=== PATIENT | female | born 1975 | race Caucasian/White ===

== ENCOUNTER 2020-06-27 05:47 | Emergency (ER) | payer MEDICAID, SELFPAY ==
[2020-06-27 05:48] VITALS: BP 157/106; PULSE 91; RESP 16; TEMP 36.9; O2SAT 99; BMI 20.7
--- NOTE | 2020-06-27 05:59 | EX.ED.DYSGE1 ---
HPI History of Present Illness Chief Complaint: Other, Pain/Inj Informant: patient Onset/Context/Timing Onset: Yesterday Context: Gradual Onset Timing: Waxes and wanes Current Severity: Moderate Maximum Severity: Moderate Narrative Narrative: Patient presents with right upper lateral rib pain. Patient states yesterday she noted mild tenderness to this area. This morning it was more severe. Pain is reproducible with palpation over the chest wall. She denies any known injury. She does report having a mammogram a week ago that was normal. She has not had cough. She denies shortness of breath. [facility] Medical History COPD (chronic obstructive pulmonary disease) Home Medications budesonide-formoterol [Symbicort 160-4.5 Mcg Inhaler] 6 g IH BID 05/16/16 [History Last Taken 05/16/16 05:30] bupropion HCl 150 mg PO BID 05/16/16 [History Last Taken 05/16/16 05:30] naproxen 500 mg PO BID PRN #20 tab 05/16/16 [Rx Last Taken Unknown] tiotropium bromide [Spiriva] 18 mcg IH DAILY 05/16/16 [History Last Taken 05/16/16 05:30] lidocaine [Lidoderm] 1 patch TOPICAL Q24H #4 ea 06/27/20 [Rx Last Taken Unknown] naproxen [Naprosyn] 500 mg PO BID PRN #20 tab 06/27/20 [Rx Last Taken Unknown] Allergy/AdvReac Type Severity Reaction Status Date / Time No Known Allergies Allergy Verified 06/27/20 05:52 Social History Smoking Status: Current every day smoker ROS ROS ED Constitutional Constitutional ED: Denies chills or fever(s) Eyes Eyes: Denies change in vision ENT ENT ED: Denies sore throat Cardiovascular Cardiovascular: Reports chest pain Respiratory/Chest Respiratory/Chest: Denies cough or dyspnea Gastrointestinal Gastrointestinal: Denies abdominal pain, diarrhea, nausea or vomiting Genitourinary Genitourinary ED: Denies dysuria Musculoskeletal Musculoskeletal: Denies back pain Integumentary Denies rash Neurologic Neurologic: Denies headache(s) or weakness Psychiatric Psychiatric: Denies anxiety or depression Endocrine Endocrinology: Denies polydipsia or polyuria Allergic/Immunologic Allergic/Immunologic ED: Denies urticaria EXAM Physical Exam Const Vital Signs: 06/27/20 05:48 06/27/20 05:52 Temperature 98.5 F Temperature Source Oral Pulse Rate 91 Respiratory Rate 16 Respiratory Effort Normal Respiratory Pattern Normal Blood Pressure 157/106 H Blood Pressure Mean 123 Pulse Ox 99 Oxygen Delivery Method Room Air Positive well nourished and well developed General Appearance ED: well developed HEENT Reports normocephalic and head/scalp atraumatic Eyes PERRL and EOMs intact bilaterally Neck supple Chest Wall inspection of chest normal Chest: other Right upper lateral chest wall pain. No obvious masses. No crepitus. No overlying skin change. Resp normal respiratory effort and clear to auscultation bilaterally Cardio regular rate and regular rhythm GI normal to inspection, nondistended, normoactive bowel sounds Palpation: soft Back/Spine no CVA tenderness Extremity normal to inspection Neuro oriented x3 and no sensory deficits noted Sensorium / Orientation: alert Motor Exam: strength 5/5 throughout Psych mental status grossly normal Skin no rashes or lesions noted MDM MDM MDM Narrative Medical decision making narrative: Patient was given naproxen on arrival. Radiography Diagnostic Testing: Radiology Impression Ribs w/Chest X-Ray 06/27/20 06:05 IMPRESSION: RIBS: Normal x-ray examination of the ribs. CHEST: Normal x-ray examination of the chest. Electronically Signed: Jose Anne DO at 6:33 EDT Tel , Service support , Treatment and Re-Evaluation Comments:: Rib series with chest x-ray per my interpretation with no obvious abnormality. Radiology interpretation is reviewed. Test results discussed with the patient. She certainly appears to have reproducible chest wall pain. I do not believe this represents a PE or underlying pulmonary pathology. Patient be treated with anti-inflammatories and Lidoderm patches. Discharge Plan Triage Chief Complaint: Other, Pain/Inj ED Provider: Gabi Isabel Dx/Rx/DC Orders Clinical Impression: Strain of chest wall Instructions: ED Chest Wall Contusion Prescriptions: New naproxen [Naprosyn] 500 mg tablet 500 mg PO BID PRN (Reason: pain) Qty: 20 RF: 0 lidocaine [Lidoderm] 5 % adhesive patch,medicated 1 patch topical Q24H Qty: 4 RF: 0 No Action bupropion HCl 150 MG tablet sustained-release 12 hr 150 mg PO BID RF: 0 tiotropium bromide [Spiriva with HandiHaler] 18 MCG capsule, w/inhalation device 18 mcg IH DAILY RF: 0 budesonide-formoterol [Symbicort] 6 GM HFA aerosol inhaler 6 g IH BID RF: 0 naproxen 500 MG tablet 500 mg PO BID PRN Qty: 20 RF: 0 Primary Care Provider: Kaiser Pinto Referrals: Kaiser Pinto MD [Primary Care Provider] - 10-14 Days if not better Disposition Disposition: Home, self care
[2020-06-27] MEDS: Naproxen 500 MG Tablet PO (06:02)
--- NOTE | 2020-06-27 06:05 | RAD_ITS ---
STUDY: X-RAY - UNILATERAL RIBS ( RIGHT ) WITH CHEST REASON FOR EXAM: Female, 44 years old. right sided rib pain. NKI, pt states she does a lot of heavy lifting or may have bumped into something. TECHNIQUE - RIBS: 3 view(s) of the ribs. TECHNIQUE - CHEST: Single frontal view of the chest. COMPARISON: None. FINDINGS - RIBS: Normal visualized ribs without a demonstrated fracture. FINDINGS - CHEST: The lungs are clear and expanded. There is no demonstrated pleural abnormality. Normal size heart. Normal mediastinum and yadira. Normal visualized pulmonary arteries. Normal visualized aortic arch and descending thoracic aorta. Normal visualized thoracic spine. Normal visualized ribs, clavicles, and shoulders. There is no demonstrated abnormality of the visualized soft tissue structures of the upper abdomen. RAD/Ribs Uni Min 3V w/PA Chest IMPRESSION: RIBS: Normal x-ray examination of the ribs. CHEST: Normal x-ray examination of the chest. Electronically Signed: Jose Anne DO at 6:33 EDT Tel , Service support ,
== END 2020-06-27 07:12 | disposition home or self-care (01) ==
PROVIDERS: Emergency Provider Emergency Medicine; PCP Family Medicine
DX: S29.011A Strain of muscle and tendon of front wall of thorax, initial encounter (principal); J44.9 Chronic obstructive pulmonary disease, unspecified; F17.200 Nicotine dependence, unspecified, uncomplicated; Z79.1 Long term (current) use of non-steroidal anti-inflammatories (NSAID)
CPT/HCPCS: 71101; 99283

== ENCOUNTER 2021-02-18 18:05 | Emergency (ER) | payer MEDICAID, SELFPAY ==
[2021-02-18 18:06] VITALS: BP 113/68; PULSE 80; RESP 16; TEMP 36.4; O2SAT 94; BMI 18.7
--- NOTE | 2021-02-19 01:19 | EDS_ITS ---
HPI History of Present Illness Chief Complaint: Dental Narrative Narrative: Patient is a 45-year-old female who states that she had a filling to one of her upper teeth come out about a week ago. She states in the last 2 days she has been having increasing right-sided facial swelling and pain. She denies any fevers chills trouble breathing or swallowing but secondary to concern for infection presents for evaluation. [facility] Medical History COPD (chronic obstructive pulmonary disease) Home Medications budesonide-formoterol [Symbicort 160-4.5 Mcg Inhaler] 6 g IH BID 05/16/16 [History Last Taken 05/16/16 05:30] tiotropium bromide [Spiriva] 18 mcg IH DAILY 05/16/16 [History Last Taken 05/16/16 05:30] albuterol sulfate 1 puff INHALATION Q6H PRN 02/19/21 [History Last Taken Unknown] amoxicillin-pot clavulanate [Augmentin] 1 tab PO BID 10 Days #20 tab 02/19/21 [Rx Last Taken Unknown] mometasone-formoterol [Dulera] INHALATION 02/19/21 [History Last Taken Unknown] Allergy/AdvReac Type Severity Reaction Status Date / Time No Known Allergies Allergy Verified 02/18/21 18:09 Social History Smoking Status: Current every day smoker tobacco type: cigarettes ROS ROS ED Constitutional Constitutional ED: Denies chills or fever(s) ENT ENT ED: Reports other Details: Positive facial swelling and dental pain ; Denies sore throat Cardiovascular Cardiovascular: Denies chest pain Respiratory/Chest Respiratory/Chest: Denies cough or dyspnea Gastrointestinal Gastrointestinal: Denies abdominal pain, diarrhea, nausea or vomiting Genitourinary Genitourinary ED: Denies dysuria Musculoskeletal Musculoskeletal: Denies myalgias Integumentary Denies rash Neurologic Neurologic: Denies headache(s) Hematologic/Lymphatic Hematologic/Lymphatic: Denies easy bleeding or easy bruising EXAM Physical Exam Const Vital Signs: 02/18/21 18:06 Temperature 97.5 F L Temperature Source Oral Pulse Rate 80 Respiratory Rate 16 Blood Pressure 113/68 Blood Pressure Mean 83 Pulse Ox 94 Oxygen Delivery Method Room Air Positive well nourished and well developed General Appearance ED: well developed HEENT Reports moist mucous membranes HEENT Narrative: Patient has diffuse soft tissue swelling to the right cheek without obvious cellulitis or parotiditis noted. There are dental caries present within the mouth without oral lesions airway edema or compromise. There is small amount of purulent material noted along the right upper gingiva consistent with developing dental abscess. Eyes PERRL and EOMs intact bilaterally Neck supple Neck Narrative: No brawny edema in the submental space to suggest Ridge's angina Resp normal respiratory effort and clear to auscultation bilaterally Cardio regular rate and regular rhythm Extremity normal to inspection Neuro oriented x3 and CN's II-XII intact bilaterally Sensorium / Orientation: alert Motor Exam: strength 5/5 throughout Psych mental status grossly normal Skin no rashes or lesions noted Skin Narrative: Soft tissue swelling of the right face as documented above MDM MDM MDM Narrative Medical decision making narrative: Patient presented to the ER afebrile without respiratory distress or airway compromise and no soft tissue changes to suggest Ridge's angina. Therefore I felt no need for imaging or laboratory studies. As there was a small amount appear material expressed on exam I did recommend we perform an incision and drainage based on the fact she has a dental abscess. Patient states she does not want any type of incision performed at this time and therefore I will simply place her on antibiotics and patient can be discharged and follow-up with her dentist for repeat evaluation Discharge Plan Triage Chief Complaint: Dental ED Provider: Clifton Whittington Dx/Rx/DC Orders Clinical Impression: Abscess, dental Instructions: Dental Abscess Prescriptions: New amoxicillin-pot clavulanate [Augmentin] 875-125 mg tablet 1 tab PO BID 10 Days Qty: 20 RF: 0 No Action Spiriva with HandiHaler 18 MCG capsule, w/inhalation device 18 mcg IH DAILY RF: 0 budesonide-formoterol [Symbicort] 6 GM HFA aerosol inhaler 6 g IH BID RF: 0 albuterol sulfate 90 mcg/actuation Hfa Aerosol Inhaler 1 puff INHALATION Q6H PRN (Reason: sob) RF: 0 Dulera 200-5 mcg/actuation Hfa Aerosol Inhaler INHALATION RF: 0 Primary Care Provider: Kaiser Pinto Referrals: Kaiser Pinto MD [Primary Care Provider] - Disposition Disposition: Home, Self Care Discharge Date/Time: 02/19/21 01:34
[2021-02-19] MEDS: Amox/Clavulanate 875 MG Tablet PO (01:28)
== END 2021-02-19 01:34 | disposition home or self-care (01) ==
PROVIDERS: Emergency Provider Emergency Medicine; PCP Family Medicine; Visit Provider Emergency Medicine
DX: K04.7 Periapical abscess without sinus (principal); J44.9 Chronic obstructive pulmonary disease, unspecified; R51.9 Headache, unspecified; F17.210 Nicotine dependence, cigarettes, uncomplicated
CPT/HCPCS: 99282

== ENCOUNTER 2022-03-25 03:51 | Emergency (ER) | payer OTHER, MEDICAID, SELFPAY ==
[2022-03-25 03:52] VITALS: BP 151/83; PULSE 103; RESP 16; TEMP 37.2; O2SAT 95; BMI 19.8
--- NOTE | 2022-03-25 03:56 | EDS_ITS ---
HPI History of Present Illness Chief Complaint: Dental Informant: patient Onset/Context/Timing Onset: Yesterday Context: Gradual Onset Timing: Continuous Quality: aching Location: R maxillary tooth Current Severity: Moderate Maximum Severity: Moderate Worsened by: eating Associated Symptoms Assocated Symptom - Dental: face swelling Narrative Narrative: Gradual onset right maxillary tooth ache yesterday, woke up early this morning with more pain and a very swollen face. No fevers or chills. No bleeding or purulent discharge in her mouth. PFSH PFSH Medical History COPD (chronic obstructive pulmonary disease) Home Medications budesonide-formoterol HFA 160 mcg-4.5 mcg/actuation aerosol inhaler (Symbicort) 6 g IH BID COPD 05/16/16 [History Last Taken 05/16/16 05:30] tiotropium bromide 18 mcg capsule with inhalation device (Spiriva with HandiHaler) 18 mcg IH DAILY COPD 05/16/16 [History Last Taken 05/16/16 05:30] albuterol sulfate 90 mcg/actuation aerosol inhaler 1 puff inhalation Q6H PRN sob 02/19/21 [History Last Taken Unknown] amoxicillin 875 mg-potassium clavulanate 125 mg tablet (Augmentin) 1 tab PO BID 10 days #20 tabs 02/19/21 [Rx Last Taken Unknown] mometasone-formoterol HFA 200 mcg-5 mcg/actuation aerosol inhaler (Dulera) inhalation 02/19/21 [History Last Taken Unknown] amoxicillin 500 mg tablet 500 mg PO TID #30 tabs 03/25/22 [Rx Last Taken Unknown] Allergy/AdvReac Type Severity Reaction Status Date / Time No Known Allergies Allergy Verified 02/18/21 18:09 Social History Smoking Status: Current every day smoker tobacco type: cigarettes ROS ROS ED Constitutional Constitutional ED: Denies chills or fever(s) Eyes Eyes: Denies change in vision or double vision ENT ENT ED: Reports as per HPI and dental pain; Denies sinus pain or throat swelling Cardiovascular Cardiovascular: Denies chest pain or palpitations Respiratory/Chest Respiratory/Chest: Denies cough or dyspnea Integumentary Denies abscess or rash Neurologic Neurologic: Denies headache(s), paresthesias or weakness EXAM Physical Exam Const Vital Signs: 03/25/22 03:52 Temperature 99 F Temperature Source Temporal Pulse Rate 103 H Respiratory Rate 16 Blood Pressure 151/83 H Blood Pressure Mean 105 Pulse Ox 95 Oxygen Delivery Method Room Air Positive well nourished and well developed General Appearance ED: well developed and NAD HEENT HEENT Narrative: Tender tooth #4, it appears normal otherwise and has a filling intact. The ging [place] around it has some plaque but no bleeding or signs of a gingival abscess or gingivitis. There appears to be a supraperiapical abscess that is pointing intraorally, tender just external to the affected tooth, and there is significant diffuse right maxillary facial swelling that makes it difficult to appreciate if there is a definite fluctuant collection/abscess or not. Face and Sinus: sinuses nontender Throat: posterior oropharynx normal Eyes PERRL and EOMs intact bilaterally Neck no lymphadenopathy and supple Resp normal respiratory effort Neuro oriented x3 and CN's II-XII intact bilaterally Sensorium / Orientation: alert Gait (Neuro): normal gait Psych mental status grossly normal and thought process normal Skin no rashes or lesions noted and no wounds MDM MDM MDM Narrative Medical decision making narrative: My recommendation to the patient was to have us perform a needle aspiration of this, as there is a possible collection/abscess here that if we drain, will help this get better quicker. She was amenable to that understanding that there is no guarantee that it would be successful. See the procedure note, only yielded very small purulent material, will place her on amoxicillin and have her follow- up with a dentist. She is not in a lot of pain, it is more the swelling that she was concerned about but I did give her a dose of anti-inflammatory here. Procedures Other Procedures Procedure(s): Dental abscess aspiration: After informed consent verbally from the patient, locally anesthetized intraorally with Cetacaine spray, followed by attempted aspiration suprapically with a 21-gauge needle, only a drop of purulent material was able to be aspirated after redirecting once or twice, patient tolerated well no complications. Able to rinse with ice water without difficulty. Discharge Plan Triage Chief Complaint: Dental ED Provider: Petey Valencia Dx/Rx/DC Orders Clinical Impression: Dental abscess, Odontalgia Instructions: Dental Abscess Prescriptions: New amoxicillin 500 mg tablet 500 mg PO TID Qty: 30 0RF No Action Spiriva with HandiHaler 18 MCG capsule, w/inhalation device 18 mcg IH DAILY budesonide-formoterol [Symbicort] 6 GM HFA aerosol inhaler 6 g IH BID albuterol sulfate 90 mcg/actuation Hfa Aerosol Inhaler 1 puff INHALATION Q6H PRN (Reason: sob) Dulera 200-5 mcg/actuation Hfa Aerosol Inhaler INHALATION amoxicillin-pot clavulanate [Augmentin] 875-125 mg tablet 1 tab PO BID 10 Days Qty: 20 0RF Primary Care Provider: Kaiser Pinto Referrals: Kaiser Pinto MD [Primary Care Provider] - Dentist,Your [STAFF PHYSICIAN] - 3-5 Days Disposition Disposition: Home, Self Care
[2022-03-25] MEDS: Amoxicillin 250 MG Capsule PO (04:20)
[2022-03-25] MEDS: Naproxen 500 MG Tablet PO (04:20)
[2022-03-25] MEDS: AMOXICILLIN 500 MG CAPSULE PO (04:20)
[2022-03-25] MEDS: Tetracaine/Benzocaine/Butamben 1 APPLIC TOPICAL (04:21)
== END 2022-03-25 04:22 | disposition home or self-care (01) ==
PROVIDERS: Emergency Provider Emergency Medicine; PCP Family Medicine; Visit Provider Emergency Medicine
DX: K04.7 Periapical abscess without sinus (principal); J44.9 Chronic obstructive pulmonary disease, unspecified; F17.210 Nicotine dependence, cigarettes, uncomplicated; K08.89 Other specified disorders of teeth and supporting structures
CPT/HCPCS: 41800; 64999; 99283

== ENCOUNTER 2025-01-16 08:06 | Inpatient (IN) | payer OTHER, SELFPAY ==
[2025-01-16] VITALS (16 sets, daily range): BP systolic 121–139; BP diastolic 75–92; PULSE 92–117; RESP 16–23; TEMP 35.9–37.1; O2SAT 87–99; BMI 17.6; BMI 16.2
--- NOTE | 2025-01-16 08:51 | EKG12_ITS ---
Test Reason : SOB Blood Pressure : */* mmHG Vent. Rate : 93 BPM Atrial Rate : 93 BPM P-R Int : 106 ms QRS Dur : 80 ms QT Int : 352 ms P-R-T Axes : 77 86 72 degrees QTcB Int : 437 ms Sinus rhythm with short [place] Otherwise normal ECG Confirmed by Juanito Gomes ([id number]), desk editor BRY ARAUJO ([id number]) on 01/18/2025 8:39:15 AM Referred By: MEE Confirmed By: Juanito Gomes
--- NOTE | 2025-01-16 08:57 | ED.VIS.DYS ---
HPI History of Present Illness Chief Complaint: Shortness of Breath Narrative Narrative: Chief complaint and HPI: 57-year-old female with past medical history of COPD presents for evaluation of shortness of breath. Patient states all last week she was fatigued but denies any fever, chills, URI symptoms. States she has been having some shortness of breath and intermittent left-sided chest pain which she describes as sharp. Onset of symptoms several days. Worse when she takes a deep breath. Has been using her COPD medications. Denies DuoNebs at home. States she wears 2 1/2 L at night but has been wearing O2 continuously due to her shortness of breath. Review of systems: See HPI Medications: As listed on the chart Allergies: As listed on the chart PFSH: Per chart Vital signs: As listed on the chart. Reviewed. Physical exam: Gen: A&O x3, NAD Head: Normocephalic, atraumatic Eyes: No sclera icterus, conjunctiva clear ENT: Moist mucous membranes Neck: Trachea midline, No JVD CV: Tachycardic, regular rhythm, no murmurs, no peripheral edema Resp: Lungs CTA BL with expiratory wheezing GI: Abd soft, non-distended, non-tender, no r/r/g Musc: Full ROM, no deformity Skin: Warm, dry Neuro: Alert, oriented, grossly intact, sensation intact Psych: Cooperative, appropriate mood and affect [facility] Medical History COPD (chronic obstructive pulmonary disease) Home Medications ?Medication ?Instructions ?Recorded ?Last Taken ?Type albuterol sulfate 90 mcg/actuation 1 puff inhalation Q6H PRN sob 02/19/21 01/16/25 History aerosol inhaler fluticasone fur. 100 mcg-umeclid 1 ea inhalation DAILY 01/16/25 01/16/25 History 62.5 mcg-vilant 25 mcg inhalat.powder (Trelegy Ellipta) Allergy/AdvReac Type Severity Reaction Status Date / Time No Known Allergies Allergy Verified 01/16/25 08:11 Social History Smoking Status: Former smoker EXAM Physical Exam Const Vital Signs: 01/16/25 08:09 01/16/25 08:12 01/16/25 08:12 Temperature 98.7 F 98.6 F Temperature Source Oral Oral Pulse Rate 99 95 Respiratory Rate 18 18 Respiratory Effort Short of Breath Respiratory Depth Normal Respiratory Pattern Normal Blood Pressure 130/90 H 139/90 H Blood Pressure Mean 103 106 Pulse Ox 98 98 Oxygen Delivery Method Nasal Cannula Nasal Cannula Nasal Cannula Oxygen Flow Rate (L/min) 2 2 01/16/25 08:55 01/16/25 08:55 01/16/25 08:57 Temperature Temperature Source Pulse Rate 110 H Respiratory Rate 18 Respiratory Effort Respiratory Depth Respiratory Pattern Blood Pressure Blood Pressure Mean Pulse Ox 98 87 Oxygen Delivery Method Nasal Cannula Room Air Oxygen Flow Rate (L/min) 2 01/16/25 09:23 01/16/25 10:15 01/16/25 10:29 Temperature 98.1 F 98.6 F Temperature Source Oral Oral Pulse Rate 92 99 95 Respiratory Rate 23 H 18 17 Respiratory Effort Respiratory Depth Respiratory Pattern Blood Pressure 127/76 H 128/89 H Blood Pressure Mean 93 102 Pulse Ox 96 99 Oxygen Delivery Method Nasal Cannula Nasal Cannula Oxygen Flow Rate (L/min) 2 01/16/25 11:01 Temperature 98.1 F Temperature Source Oral Pulse Rate 111 H Respiratory Rate 20 H Respiratory Effort Respiratory Depth Respiratory Pattern Blood Pressure 126/84 H Blood Pressure Mean 98 Pulse Ox 95 Oxygen Delivery Method Nasal Cannula Oxygen Flow Rate (L/min) 2 MDM MDM MDM Narrative Medical decision making narrative: 57-year-old female with past medical history of COPD presents for evaluation of shortness of breath. Patient states all last week she was fatigued but denies any fever, chills, URI symptoms. States she has been having some shortness of breath and intermittent left-sided chest pain which she describes as sharp. Onset of symptoms several days. Worse when she takes a deep breath. Has been using her COPD medications. On presentation, patient was on 2 L nasal cannula. She was taken off of oxygen and dropped to 87% therefore patient was placed back on 2 L nasal cannula. Differential diagnosis includes but is not limited to COPD exacerbation, viral illness, pneumonia, arrhythmia, anemia, ACS, PE. DuoNebs, prednisone, aspirin ordered. CBC with mild leukocytosis 11.5. No anemia. Platelets unremarkable. D-dimer elevated at 1.37. Cannot rule out PE. CTA chest ordered. COVID, flu, RSV negative. BMP unremarkable. BNP unremarkable. CTA chest negative for PE or aortic abnormality. Moderate to severe emphysema. Nodular density with airspace disease/atelectasis in the left lower lobe. Nodule component approximately 9 mm. While this may represent area of pneumonitis, an underlying neoplastic process not excluded. Recommend follow-up imaging after treatment in 3 months to establish resolution. Right thyroid lobectomy. Troponin unremarkable x 2. On reevaluation, patient is still intermittently wheezy. She is tachycardic and intermittently tachypneic on 2 L nasal cannula. Patient will warrant admission for COPD exacerbation. Patient was updated of all results and confirmed understand the plan. I spoke with the hospitalist who accepted admission. I held off on antibiotics at this time for possible pneumonitis. EKG: Interpreted by me/EM physician: EKG shows sinus rhythm with short [place]. No acute ischemic changes. Heart rate 93 Diagnostic: Interpreted by me/EM physician: Chest x-ray without pneumonia, effusion, pneumothorax, cardiomegaly. Patient has COPD lungs. Radiology in agreement. Impression: 1. Acute hypoxia requiring oxygen 2. COPD exacerbation 3. Possible pneumonitis versus underlying neoplastic process Lab Data Labs: Laboratory Results - last 24 hr 01/16/25 01/16/25 08:22 10:19 WBC 11.5 H RBC 3.78 L Hgb 13.2 Hct 41.4 MCV 109.5 H MCH 34.9 H MCHC 31.9 L RDW Std Deviation 55.4 H RDW Coeff of [place]oul[place] 13.4 Plt Count 310 MPV 10.7 Immature Gran % (Auto) 0.600 Neut % (Auto) 83.4 H Lymph % (Auto) 11.0 L [place] % (Auto) 4.1 Eos % (Auto) 0.3 Baso % (Auto) 0.6 Absolute Neuts (auto) 9.6 H Absolute Lymphs (auto) 1.27 Nucleated RBC % 0 D-Dimer Quant (PE/DVT) 1.37 H* Sodium 139 Potassium 3.8 Chloride 98 Carbon Dioxide 31.8 Anion Gap 9 BUN 10 Creatinine 0.45 L Estim Creat Clear Calc 100.11 Est GFR (MDRD) Non-Af 117 BUN/Creatinine Ratio 22.3 H Glucose 97 Calcium 9.2 Troponin T High Sens 11 Troponin T Hi Sens 2 Hr 14 NT pro BNP II 63 Radiography Diagnostic Testing: Clinical Impression(s) from Imaging Studies Chest X-Ray 01/16/25 09:15 IMPRESSION: As above. Reading Location: [facility] Chest CTA 01/16/25 09:37 IMPRESSION: 1. No acute aortic abnormality. 2. No evidence of acute or chronic pulmonary embolus. 3. [id number] emphysema. This is greater than would be expected for age. Correlate with risk factors. 4. Nodular density with airspace disease/atelectasis in the left lower lobe. Nodular component proximally 9 mm. While this may represent an area of pneumonitis, an underlying neoplastic process not excluded. Recommend follow-up imaging after treatment in 3 months to establish resolution. If the abnormality persists, neoplasia should be excluded. 5. Right thyroid lobe lobectomy. Reading Location: [facility] Discharge Plan Triage Chief Complaint: Shortness of Breath ED Provider: Martin Joy Dx/Rx/DC Orders Prescriptions: No Action albuterol sulfate 90 mcg/actuation Hfa Aerosol Inhaler 1 puff INHALATION Q6H PRN (Reason: sob) Trelegy Ellipta 100-62.5-25 mcg blister with device 1 ea inhalation DAILY Primary Care Provider: Kaiser Pinto Referrals: Kaiser Pinto MD [Primary Care Provider, Family Practice] Print Language: Slovenian
--- NOTE | 2025-01-16 09:15 | RAD_ITS ---
PROCEDURE: CHEST PA AND LATERAL 01/16/2025 REASON FOR EXAM: SHORTNESS OF BREATH TECHNIQUE: Procedure Code: RADCXR Modality: DX Procedure: CHEST PA AND LATERAL COMPARISON: 06/27/2020. FINDINGS: The lungs are clear. The cardiomediastinal silhouette appears unremarkable. No acute osseous abnormality. RAD/Chest PA and Lateral IMPRESSION: As above. Reading Location: [id number]
[2025-01-16 09:16] LABS: Hematocrit 41.4 % (37-47); Hemoglobin 13.2 g/dL (12.0-15.0); Immature Granulocytes Count 0.070 X10^3/uL (0.0-0.0); Mean Corp Hgb Conc 31.9 g/dL (32-36); Mean Corpuscular Volume 109.5 fL (81-99); Mean Platelet Vol. 10.7 fl (6.2-12.0); NRBC Flagged by Analyzer 0 % (0-5); Platelet Count 310 K/mm3 (150-450); RBC Distribution Width CV 13.4 % (11.6-14.6); RBC Distribution Width SD 55.4 fl (35.1-43.9); Red Blood Count 3.78 M/mm3 (4.2-5.4); White Blood Count 11.5 K/mm3 (4.4-11.0)
--- NOTE | 2025-01-16 09:25 | ED.RN ---
Called lab about BNP and TROP not being received. They will be checking on it.
[2025-01-16 09:28] LABS: D-Dimer Quantitative (DVT/PE) 1.37 FEU/ug/m (0.27-0.49)
--- NOTE | 2025-01-16 09:37 | CT_ITS ---
PROCEDURE: CTA CHEST W/WO CONTRAST 01/16/2025 REASON FOR EXAM: PE TECHNIQUE: Procedure Code: [id number] Modality: CT Procedure: CTA CHEST W/WO CONTRAST Multiplanar Sagittal and Coronal images were obtained. 3D post processing was performed CONTRAST: 7 VOLUME: 75 mL One or more dose reduction techniques were used (e.g., Automated exposure control, adjustment of the mA and/or kV according to patient size, use of iterative reconstruction technique). RADIATION DOSE SUMMARY: CTDlvol: 7 mGy DLP: 113 mGycm COMPARISON: January 16, 2025 # of known CTs in the past 12 months: 0 # of known Cardiac Nuclear Medicine Studies in the past 12 months: 0 FINDINGS: Thoracic Aorta: Timing and quality of the contrast bolus is diagnostic. No evidence of aortic rupture aneurysm. Mild atherosclerotic plaque. Heart: Normal-size. No pericardial effusion. Coronary arteries are unremarkable. Pulmonary Vessels: The timing and quality of the contrast bolus is diagnostic. There is no evidence of acute or chronic pulmonary embolus. Hardware: None Lymph nodes: None appear enlarged Lungs and Airways: Tnadwexo-df-kauatc upper lobe predominant centrilobular emphysema is present. Spiculated nodular density left lower lobe with adjacent airspace disease or subsegmental atelectasis. The nodule is at least 9 mm. Subtle ground-glass opacity in the periphery of the left upper lobe. Mild scarring or atelectasis posterior right upper lobe. Pleura: No pleural effusion or pneumothorax. Upper Abdomen: Unremarkable Bones: Mild degenerative changes Right thyroid lobe is surgically absent. CT/CTA Chest W/WO Contrast IMPRESSION: 1. No acute aortic abnormality. 2. No evidence of acute or chronic pulmonary embolus. 3. Nthlkduf-mr-jtmnxo emphysema. This is greater than would be expected for a ge. Correlate with risk factors. 4. Nodular density with airspace disease/atelectasis in the left lower lobe. Nodular component proximally 9 mm. While this may represent an area of pneumonitis, an underlying neoplastic process not excluded . Recommend follow-up imaging after treatment in 3 months to establish resolution. If the abnormality persists, neoplasia shoul d be excluded. 5. Right thyroid lobe lobectomy. Reading Location: [id number]
[2025-01-16 09:41] LABS: Pro- Brain NATRIURETIC PEPTIDE 63 pg/mL (<=900); Troponin T High Sensitivity 11 ng/L (<=14)
[2025-01-16 09:43] LABS: Anion Gap 9 (5-15); BUN 10 mg/dL (4-19); BUN/Creat Ratio 22.3 RATIO (10-20); Calcium,Total 9.2 mg/dL (7.6-11.0); Carbon Dioxide 31.8 mmol/L (21.0-32.0); Chloride 98 mmol/L (98-108); Estimated Creatinine Clearance 100.11 ml/min (50-250); Glucose 97 mg/dL (70-99); Potassium 3.8 mmol/L (3.3-5.1)
[2025-01-16] MEDS: 0.9% Normal Saline (1000mL) 1,000 ML 999 ML IV (10:29)
[2025-01-16 10:59] LABS: Troponin T High Sens 2 HR 14 ng/L (<=14)
--- NOTE | 2025-01-16 11:27 | PCM.HP.STD ---
HPI - General General Date of Admission: 01/16/25 Date of Service: 01/16/25 Chief Complaint: shortness of breath HPI Narrative FABIOLA CARR, is a 49 F with a PMH as outlined who was admitted via the ED On 01/16/2025 with a complaint of shortness of breath. She has a history of COPD and said she had been fatigued all of last week prior to admission. She had associated fever, chills and URI symptoms. She also admitted to left sided shortness of breath which was pleuritic in nature. SHe said she usually wore 2.5L of oxygen at night but had now been wearing it all day. Review of systems is otherwise negative. She had been using her inhalers more often than usual. Vitals in [facility] ED were BP of 126/84, IL of 111, RR of 20 and temp was 98.1F. She was saturating at 95% on 2L of oxygen. CBC showed wbc of 11.5, Hb of 13.2 and platelets of 310. D-dimer was 1.37. Chemistry showed sodium of 139 with potassium of 3.8 and bicarb of 31.8. Creatinine was 0.45. CTA chest showed no acute aortic abnormality and no evidence of acute or chronic PE and showed moderate to severe emphysema which is greater than expected for age and a nodular density with airspace disease versus atelectasis in the left lower lobe. She also had an proximal nodular component which measured about 9 mm in her office who presented here with pneumonitis and underlying neoplastic process could not be excluded. EKG showed no acute ST changes. She has been admitted to be managed for acute hypoxia due to acute exacerbation of COPD. [facility] Medical History COPD (chronic obstructive pulmonary disease) Home Medications ?Medication ?Instructions ?Recorded ?Last Taken ?Type albuterol sulfate 90 mcg/actuation 1 puff inhalation Q6H PRN sob 02/19/21 01/16/25 History aerosol inhaler fluticasone fur. 100 mcg-umeclid 1 ea inhalation DAILY 01/16/25 01/16/25 History 62.5 mcg-vilant 25 mcg inhalat.powder (Trelegy Ellipta) Allergy/AdvReac Type Severity Reaction Status Date / Time No Known Allergies Allergy Verified 01/16/25 08:11 Social History Smoking Status: Current every day smoker tobacco type: cigarettes ROS Constitutional Constitutional: Reports fatigue, malaise and weakness; Denies anorexia, chills or fever(s) Eyes Eyes: Denies change in vision ENT HEENT: Denies dysphagia, headache(s), nasal congestion, nasal discharge or sore throat Cardiovascular Cardiovascular: Reports dyspnea on exertion and rapid heart rate; Denies chest pain, claudication, edema, lightheadedness, orthopnea, palpitations, paroxysmal nocturnal dyspnea or syncope Respiratory/Chest Respiratory/Chest: Reports cough, dyspnea, shortness of breath at rest, shortness of breath with exertion and wheezing; Denies excessive phlegm production, hemoptysis or productive cough Gastrointestinal Gastrointestinal: Denies abdominal pain, constipation, diarrhea, nausea or vomiting Genitourinary Genitourinary: Denies dysuria Musculoskeletal Musculoskeletal: Denies back pain Neurologic Neurologic: Denies confusion, dizziness, focal weakness, headache(s), numbness or seizures Psychiatric Psychiatric: Denies anxiety or depression Vital Signs Vital Signs Vital Signs: 01/16/25 08:09 01/16/25 08:12 01/16/25 08:12 Temperature 98.7 F 98.6 F Temperature Source Oral Oral Pulse Rate 99 95 Respiratory Rate 18 18 Respiratory Effort Short of Breath Respiratory Depth Normal Respiratory Pattern Normal Blood Pressure 130/90 H 139/90 H Blood Pressure Mean 103 106 Pulse Ox 98 98 Oxygen Delivery Method Nasal Cannula Nasal Cannula Nasal Cannula Oxygen Flow Rate (L/min) 2 2 01/16/25 08:55 01/16/25 08:55 01/16/25 08:57 Temperature Temperature Source Pulse Rate 110 H Respiratory Rate 18 Respiratory Effort Respiratory Depth Respiratory Pattern Blood Pressure Blood Pressure Mean Pulse Ox 98 87 Oxygen Delivery Method Nasal Cannula Room Air Oxygen Flow Rate (L/min) 2 01/16/25 09:23 01/16/25 10:15 01/16/25 10:29 Temperature 98.1 F 98.6 F Temperature Source Oral Oral Pulse Rate 92 99 95 Respiratory Rate 23 H 18 17 Respiratory Effort Respiratory Depth Respiratory Pattern Blood Pressure 127/76 H 128/89 H Blood Pressure Mean 93 102 Pulse Ox 96 99 Oxygen Delivery Method Nasal Cannula Nasal Cannula Oxygen Flow Rate (L/min) 2 01/16/25 11:01 Temperature 98.1 F Temperature Source Oral Pulse Rate 111 H Respiratory Rate 20 H Respiratory Effort Respiratory Depth Respiratory Pattern Blood Pressure 126/84 H Blood Pressure Mean 98 Pulse Ox 95 Oxygen Delivery Method Nasal Cannula Oxygen Flow Rate (L/min) 2 Weight Weight: 93 lb 7.616 oz Body Mass Index (BMI) 17.6 Physical Exam Const alert and oriented x3 Constitutional Narrative: frail looking, weak. General Appearance: cooperative HEENT normocephalic, head/scalp atraumatic, hearing grossly normal bilaterally and moist oral mucous membranes Mouth: oral and palatal mucosa normal Eyes EOMs intact bilaterally and conjunctivae normal Neck supple Resp Resp Narrative: moderately diminished breath sounds bibasally, no wheezes or crackles. On 2L of oxygen by nasal canula. Tachypneic Cardio S1 normal heart sound, S2 normal heart sound and no murmurs Cardio Narrative: tachypneic GI normal to inspection, nondistended, normoactive bowel sounds, soft to palpation and non-tender Neuro oriented x3, moves all extremities and no focal motor deficits Sensorium / Orientation: awake and alert Motor Exam: strength 5/5 throughout Psych affect normal Results Lab / Micro Data 01/16/25 08:22 01/16/25 08:22 Labs: Laboratory Results - last 24 hr 01/16/25 08:22: WBC 11.5 H, RBC 3.78 L, Hgb 13.2, Hct 41.4, MCV 109.5 H, MCH 34.9 H, MCHC 31.9 L, RDW Std Deviation 55.4 H, RDW Coeff of Roula 13.4, Plt Count 310, MPV 10.7, Immature Gran % (Auto) 0.600, Neut % (Auto) 83.4 H, Lymph % (Auto) 11.0 L, Harper % (Auto) 4.1, Eos % (Auto) 0.3, Baso % (Auto) 0.6, Absolute Neuts (auto) 9.6 H, Absolute Lymphs (auto) 1.27, Nucleated RBC % 0, D-Dimer Quant (PE/DVT) 1.37 H*, Sodium 139, Potassium 3.8, Chloride 98, Carbon Dioxide 31.8, Anion Gap 9, BUN 10, Creatinine 0.45 L, Estim Creat Clear Calc 100.11, Est GFR (MDRD) Non-Af 117, BUN/Creatinine Ratio 22.3 H, Glucose 97, Calcium 9.2, Troponin T High Sens 11, NT pro BNP II 63 01/16/25 10:19: Troponin T Hi Sens 2 Hr 14 Micro: Microbiology 01/16/25 09:03 Mucosa - Nose SARS-CoV-2, Influenza & RSV (PCR) - Final Imaging Radiology Impression Chest X-Ray 01/16/25 09:15 IMPRESSION: As above. Reading Location: [id number] Chest CTA 01/16/25 09:37 IMPRESSION: 1. No acute aortic abnormality. 2. No evidence of acute or chronic pulmonary embolus. 3. Tcqyelpz-gh-wdqhur emphysema. This is greater than would be expected for age. Correlate with risk factors. 4. Nodular density with airspace disease/atelectasis in the left lower lobe. Nodular component proximally 9 mm. While this may represent an area of pneumonitis, an underlying neoplastic process not excluded. Recommend follow-up imaging after treatment in 3 months to establish resolution. If the abnormality persists, neoplasia should be excluded. 5. Right thyroid lobe lobectomy. Reading Location: [id number] Assessment & Plan Assessment/Plan (1) COPD exacerbation: PLAN: Plan #Hypoxia due to acute COPD exacerbation Admitted with a complaint of shortness of breath and wheezing. She usually uses 2.5 L at home at night but has not been using [id number]-[id number]. CT chest showed no evidence of PE and showed no acute aortic abnormality and showed moderate to severe emphysema which was greater than 1 perspective for her age. It also showed a nodular density with airspace disease versus atelectasis in the left lower lobe and a nodular component proximally measuring 9 mm which may represent pneumonitis versus underlying neoplastic process. Admit to PCU. Patient is tachycardic and tachypneic. Currently on 2 L of oxygen. Titrate oxygen to maintain saturation above 90%. Breathing treatments bronchodilators. Started on IV Solu-Medrol 40 mg Q8 and IV Levaquin. #SIRS criteria: Patient is tachycardic and tachypneic, however this is likely due to the COPD exacerbation and not necessarily due to sepsis. Will hold off on initiating sepsis protocol for now. #Lung nodule: Patient has a 9 mm lung nodule but is unclear whether this is pneumonitis versus underlying neoplastic process. Will benefit from follow-up imaging once COPD exacerbation is resolved. #Nicotine dependence: States she quit 2 weeks ago. Counseled to continue to abstain. Nicotine patch as needed. DVT prophylaxis: Lovenox CODE STATUS:full code Patient and her daughters who were by her bedside counseled extensively about different types of CODE STATUS including full code, DNR CCA and DNR CCA. Patient elects to be full code. Total hqhn-cr-awqu time 16 minutes. Charges/Coding Visit Charges Inpatient E&M: 98710 Init Hosp L3 Procedures Hospitalists Procedures: 76557 Advncd Care Plan 30 Min
[2025-01-16] MEDS: levoFLOXacin IV 750 MG/150 ML BAG 100 MG IV (13:44)
[2025-01-16] MEDS: 0.9% Normal Saline (1000mL) 1,000 ML 125 ML IV ×2 (13:55→23:45)
[2025-01-16 14:06] LABS: Troponin T High Sens 4 HR 9 ng/L (<=14)
[2025-01-16] MEDS: Budesonide Respules 0.5 MG/2 ML AMPUL.NEB. INHALATION (19:54)
[2025-01-16] MEDS: 0.9% Saline Lock 10 ML Syringe IV (20:10)
[2025-01-17] VITALS (7 sets, daily range): BP systolic 115–140; BP diastolic 77–97; PULSE 87–101; RESP 16–20; TEMP 36.1–36.8; O2SAT 94–98
[2025-01-17 04:46] LABS: Hematocrit 37.6 % (37-47); Hemoglobin 12.0 g/dL (12.0-15.0); Immature Granulocytes Count 0.050 X10^3/uL (0.0-0.0); Mean Corp Hgb Conc 31.9 g/dL (32-36); Mean Corpuscular Volume 108.7 fL (81-99); Mean Platelet Vol. 10.5 fl (6.2-12.0); NRBC Flagged by Analyzer 0 % (0-5); Platelet Count 281 K/mm3 (150-450); RBC Distribution Width CV 13.5 % (11.6-14.6); RBC Distribution Width SD 53.9 fl (35.1-43.9); Red Blood Count 3.46 M/mm3 (4.2-5.4); White Blood Count 9.3 K/mm3 (4.4-11.0)
[2025-01-17] MEDS: 0.9% Saline Lock 10 ML Syringe IV ×2 (05:08→20:29)
[2025-01-17 05:17] LABS: Anion Gap 11 (5-15); BUN 6 mg/dL (4-19); BUN/Creat Ratio 16.1 RATIO (10-20); Calcium,Total 8.7 mg/dL (7.6-11.0); Carbon Dioxide 24.7 mmol/L (21.0-32.0); Chloride 105 mmol/L (98-108); Estimated Creatinine Clearance 115.40 ml/min (50-250); Glucose 108 mg/dL (70-99); Potassium 4.7 mmol/L (3.3-5.1)
[2025-01-17] MEDS: Budesonide Respules 0.5 MG/2 ML AMPUL.NEB. INHALATION ×2 (06:44→19:32)
[2025-01-17] MEDS: levoFLOXacin IV 750 MG/150 ML BAG 100 MG IV (09:57)
--- NOTE | 2025-01-17 10:45 | CASEMGMT ---
RN CM Face to Face with patient for initial transition planning/care coordination assessment. RN CM introduced self and role at [facility]. Patient lying in bed, alert and oriented. Patient willing to participate in assessment and is able to answer all questions appropriately. Care providers, pharmacy, and demographics verified. Strata: 1 PCP: Millie Specialists: Scott Saleem data collection specialist Preferred Pharmacy: [facility] Insurance: [employer] Prescription Benefit: yes Living Will/HPOA: none LNOK: daughter, mother Living Arrangements: Patient lives with daughter in a first floor apartment with 1 step to enter. Patient states she is independent at home. Transportation: self, friends, mother DME/HHC: Patient has grab bar and home oxygen through [facility] with 1 portable tank. No previous HHC or SNF. Patient wishes to discharge home, denies need for home health at this time. Patient states she has no further needs or concerns at this time. CM to follow for discharge planning needs that may arise. Disposition Plan: Patient to discharge home with family support and follow-up plans in place. Sydnie RICKS, RN, CM
--- NOTE | 2025-01-17 12:27 | PN_ITS ---
Subjective Subjective Patient seen and examined with her nurse by her bedside. She had no active complaints. She is feeling much better. She is on 2L of oxygen. Review of systems is otherwise negative. She has remained hemodynamically stable. Objective Data Objective Data Vital Signs: Vital Signs Temp Pulse Resp BP Pulse Ox O2 Del Method O2 Flow Rate 98.3 F 101 H 18 125/79 H 97 Nasal Cannula 2 01/17/25 09:44 01/17/25 09:44 01/17/25 09:44 01/17/25 09:44 01/17/25 09:44 01/17/25 09:44 01/17/25 09:44 Oxygen Flow Rate (L/min) 2 Oxygen Delivery Method Nasal Cannula Weight: 86 lb 3.212 oz Body Mass Index (BMI) 16.2 Intake & Output: Intake and Output for Last 24 Hours 01/15/25 01/16/25 01/17/25 23:59 23:59 23:59 Intake Total 2150 / 2150 1000 / 1000 Balance 2150 / 2150 1000 / 1000 Medical Nutrition Assessment Dietitian: Malnutrition Criteria Met Start: 01/16/25 16:43 Freq: Status: Active Protocol: Document 01/16/25 16:43 RMA (Rec: 01/16/25 16:43 RMA [id number]) Nutrition Malnutrition Evidence of Yes Malnutrition Exists Malnutrition (severe Chronic ): Evidenced By Suboptimal Energy Intake (Severe),Weight Loss (Severe), Physical Changes (Severe) Clinical Problem Chronic Disease or Condition Related Malnutrition Etiology Severe protein-calorie malnutrition in the context of chronic disease/COPD related to inadequate energy intake and increased energy expenditure Signs/Symptoms as evidenced by BMI 16.3; cachectic-appearance with severe muscle wasting and fat depletion in the clavicle , face, arms and legs; ~34% unintentional weight loss x 10-12 months; PO meeting less than 50% estimated nutrition needs x 6-12 months. Status Active Problem Recommendation Dietitian Continue liberalized regular diet and encourage Recommendations/ increased PO as tolerated. Changes Will add 240mL chocolate ensure plus HP 3 times per day with meals; encouraged to sip on them between meals. Will add magic cup dessert BID with lunch and dinner Q day. Trend weights, adjust ONS as needed, consider nocturnal TF support as indicated especially if PO is not adequate to replete increased energy needs. Lab / Micro Data 01/17/25 03:57 01/17/25 03:57 Labs: Laboratory Results - last 24 hr 01/16/25 13:30: Troponin T Hi Sens 4Hr 9 01/17/25 03:57: WBC 9.3, RBC 3.46 L, Hgb 12.0, Hct 37.6, MCV 108.7 H, MCH 34.7 H , MCHC 31.9 L, RDW Std Deviation 53.9 H, RDW Coeff of Roula 13.5, Plt Count 281, MPV 10.5, Immature Gran % (Auto) 0.500, Neut % (Auto) 88.9 H, Lymph % (Auto) 7.8 L, Ponce % (Auto) 2.7, Eos % (Auto) 0.0, Baso % (Auto) 0.1, Absolute Neuts (auto) 8.3 H, Absolute Lymphs (auto) 0.73 L, Nucleated RBC % 0, Sodium 141, Potassium 4.7, Chloride 105, Carbon Dioxide 24.7, Anion Gap 11, BUN 6, Creatinine 0.36 L, Estim Creat Clear Calc 115.40, Est GFR (MDRD) Non-Af 124, BUN/Creatinine Ratio 16.1, Glucose 108 H, Calcium 8.7 Micro: Microbiology 01/16/25 14:57 Mucosa - Nose Respiratory Panel (PCR) - Final 01/16/25 09:03 Mucosa - Nose SARS-CoV-2, Influenza & RSV (PCR) - Final Physical Exam Const alert and oriented x3 Constitutional Narrative: looks much better today General Appearance: cooperative HEENT normocephalic, head/scalp atraumatic, hearing grossly normal bilaterally and moist oral mucous membranes Eyes EOMs intact bilaterally and conjunctivae normal Neck supple Lymph Lymphatic: no lymphedema noted Resp Resp Narrative: moderately diminished breath sounds bibasally, no wheezes or crackles. On 2L of oxygen by nasal canula. Cardio S1 normal heart sound, S2 normal heart sound and no murmurs GI normal to inspection, nondistended, normoactive bowel sounds, soft to palpation and non-tender Extremity normal capillary refill General Extremity: no tenderness to palpation of joints or extremities Skin General Skin Exam: no breakdown Neuro oriented x3, moves all extremities and no focal motor deficits Sensorium / Orientation: awake and alert Motor Exam: strength 5/5 throughout Psych affect normal Appearance: appropriate Assessment & Plan Assessment/Plan (1) COPD exacerbation: PLAN: Plan #Hypoxia in the setting of chronic respiratory failure due to acute COPD exacerbation * Resolving. Patient now on 2 L of oxygen. * Admitted with a complaint of shortness of breath and wheezing. She usually uses 2.5 L at home at night but has not been using pdzkir-zhw-ouptw. * CT chest showed no evidence of PE and showed no acute aortic abnormality and showed moderate to severe emphysema which was greater than 1 perspective for her age. It also showed a nodular density with airspace disease versus atelectasis in the left lower lobe and a nodular component proximally measuring 9 mm which may represent pneumonitis versus underlying neoplastic process. * Feeling much better today. Tachypnea has resolved. She is down to 2 L of oxygen. * Continue IV Solu-Medrol and IV Levaquin. Breathing treatments and bronchodilators. Titrate oxygen to maintain saturation above 90%. * * #SIRS criteria: Resolved. Was due to COPD exacerbation. #Lung nodule: Patient has a 9 mm lung nodule but is unclear whether this is pneumonitis versus underlying neoplastic process. Will benefit from follow-up imaging once COPD exacerbation is resolved. #Nicotine dependence: States she quit 2 weeks ago. Counseled to continue to abstain. Nicotine patch as needed. DVT prophylaxis: Lovenox CODE STATUS:full code * Charges/Coding Visit Charges Inpatient E&M: 58411 Subs Hosp L2
[2025-01-18] VITALS (11 sets, daily range): BP systolic 117–136; BP diastolic 71–95; PULSE 75–97; RESP 16–20; TEMP 36.2–36.9; O2SAT 88–99
[2025-01-18] MEDS: 0.9% Saline Lock 10 ML Syringe IV (04:52)
[2025-01-18 05:01] LABS: Hematocrit 39.3 % (37-47); Hemoglobin 13.0 g/dL (12.0-15.0); Immature Granulocytes Count 0.030 X10^3/uL (0.0-0.0); Mean Corp Hgb Conc 33.1 g/dL (32-36); Mean Corpuscular Volume 106.2 fL (81-99); Mean Platelet Vol. 9.9 fl (6.2-12.0); NRBC Flagged by Analyzer 0 % (0-5); Platelet Count 309 K/mm3 (150-450); RBC Distribution Width CV 13.4 % (11.6-14.6); RBC Distribution Width SD 53.1 fl (35.1-43.9); Red Blood Count 3.70 M/mm3 (4.2-5.4); White Blood Count 12.3 K/mm3 (4.4-11.0)
[2025-01-18 05:33] LABS: Anion Gap 9 (5-15); BUN 12 mg/dL (4-19); BUN/Creat Ratio 29.6 RATIO (10-20); Calcium,Total 8.9 mg/dL (7.6-11.0); Carbon Dioxide 28.2 mmol/L (21.0-32.0); Chloride 102 mmol/L (98-108); Estimated Creatinine Clearance 106.52 ml/min (50-250); Glucose 100 mg/dL (70-99); Potassium 4.3 mmol/L (3.3-5.1)
[2025-01-18] MEDS: Budesonide Respules 0.5 MG/2 ML AMPUL.NEB. INHALATION (07:07)
[2025-01-18] MEDS: levoFLOXacin IV 750 MG/150 ML BAG 100 MG IV (09:02)
--- NOTE | 2025-01-18 12:46 | DS.PCM_ITS ---
Providers Date of Admission: 01/16/25 Date of Discharge: 01/18/25 Primary Care Physician: Dr. Kaiser Pinto MD Reason For Visit: ACUTE HYPOXIA DUE TO ACUTE COPD EXACERBATION Diagnosis Discharge Diagnosis (1) COPD exacerbation: Status: Chronic Code(s): J44.1 - Chronic obstructive pulmonary disease with (acute) exacerbation Plan #Hypoxia in the setting of chronic respiratory failure due to acute COPD exacerbation * Resolving. Patient now on 2 L of oxygen. * Admitted with a complaint of shortness of breath and wheezing. She usually uses 2.5 L at home at night but has not been using [id number]. * CT chest showed no evidence of PE and showed no acute aortic abnormality and showed moderate to severe emphysema which was greater than 1 perspective for her age. It also showed a nodular density with airspace disease versus atelectasis in the left lower lobe and a nodular component proximally measuring 9 mm which may represent pneumonitis versus underlying neoplastic process. * Feeling much better today. Tachypnea has resolved. She is down to 2 L of oxygen. * Continue IV Solu-Medrol and IV Levaquin. Breathing treatments and bronchodilators. Titrate oxygen to maintain saturation above 90%. * * #SIRS criteria: Resolved. Was due to COPD exacerbation. #Lung nodule: Patient has a 9 mm lung nodule but is unclear whether this is pneumonitis versus underlying neoplastic process. Will benefit from follow-up imaging once COPD exacerbation is resolved. #Nicotine dependence: States she quit 2 weeks ago. Counseled to continue to abstain. Nicotine patch as needed. DVT prophylaxis: Lovenox CODE STATUS:full code * Medications at Discharge Home Medications albuterol sulfate 90 mcg/actuation aerosol inhaler 1 puff inhalation Q6H PRN sob 02/19/21 fluticasone fur. 100 mcg-umeclid 62.5 mcg-vilant 25 mcg inhalat.powder (Trelegy Ellipta) 1 ea inhalation DAILY 01/16/25 levofloxacin 500 mg tablet 500 mg PO DAILY #3 tabs 01/18/25 prednisone 20 mg tablet 40 mg (2 x 20 mg) PO DAILY #10 tabs 01/18/25 Hospital Course Operations None Procedures None Summary of Care Provided Minutes Spent on Discharge: 45 Hospital Course: FABIOLA CARR, is a 49 F with a PMH as outlined who was admitted via the ED On 01/16/2025 with a complaint of shortness of breath. She has a history of COPD and said she had been fatigued all of last week prior to admission. She had associated fever, chills and URI symptoms. She also admitted to left sided shortness of breath which was pleuritic in nature. SHe said she usually wore 2.5L of oxygen at night but had now been wearing it all day. Review of systems is otherwise negative. She had been using her inhalers more often than usual. Vitals in [facility] ED were BP of 126/84, LA of 111, RR of 20 and temp was 98.1F. She was saturating at 95% on 2L of oxygen. CBC showed wbc of 11.5, Hb of 13.2 and platelets of 310. D-dimer was 1.37. Chemistry showed sodium of 139 with potassium of 3.8 and bicarb of 31.8. Creatinine was 0.45. CTA chest showed no acute aortic abnormality and no evidence of acute or chronic PE and showed moderate to severe emphysema which is greater than expected for age and a nodular density with airspace disease versus atelectasis in the left lower lobe. She also had an proximal nodular component which measured about 9 mm in her office who presented here with pneumonitis and underlying neoplastic process could not be excluded. EKG showed no acute ST changes. She was admitted to be managed for acute hypoxia due to acute COPD exacerbation. She was placed on IV Solu-Medrol and breathing treatments with bronchodilators. She was also placed on IV Levaquin. Her shortness of breath gradually improved and she felt much better. She was weaned down to her baseline 2 L of oxygen. She was discharged home on 01/18/2025 on p.o. prednisone 40 mg daily for 5 days as well as p.o. Levaquin for 3-day course. 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 Patient seen and examined prior to discharge. She had no active complaints and had an uneventful night. She felt much better and was eager to be discharged home. Review of systems otherwise negative. Labs and vitals reviewed. Medication reviewed and reconciled. Physical Exam Const alert and oriented x3 General Appearance: cooperative HEENT normocephalic, head/scalp atraumatic, hearing grossly normal bilaterally and moist oral mucous membranes Mouth: oral and palatal mucosa normal Eyes EOMs intact bilaterally and conjunctivae normal Neck supple Lymph Lymphatic: no lymphedema noted Resp Resp Narrative: moderately diminished breath sounds bibasally, no wheezes or crackles. On 2L of oxygen by nasal canula. Cardio S1 normal heart sound, S2 normal heart sound and no murmurs Cardio Narrative: tachypneic GI normal to inspection, nondistended, normoactive bowel sounds, soft to palpation and non-tender Extremity normal capillary refill General Extremity: no tenderness to palpation of joints or extremities Skin General Skin Exam: no breakdown Neuro oriented x3, moves all extremities and no focal motor deficits Sensorium / Orientation: awake and alert Motor Exam: strength 5/5 throughout Psych affect normal Appearance: appropriate Medical Records Data Medical Nutrition Assessment Dietitian: Malnutrition Criteria Met Start: 01/16/25 16:43 Freq: Status: Active Protocol: Document 01/16/25 16:43 RMA (Rec: 01/16/25 16:43 RMA [id number]) Nutrition Malnutrition Evidence of Yes Malnutrition Exists Malnutrition (severe Chronic ): Evidenced By Suboptimal Energy Intake (Severe),Weight Loss (Severe), Physical Changes (Severe) Clinical Problem Chronic Disease or Condition Related Malnutrition Etiology Severe protein-calorie malnutrition in the context of chronic disease/COPD related to inadequate energy intake and increased energy expenditure Signs/Symptoms as evidenced by BMI 16.3; cachectic-appearance with severe muscle wasting and fat depletion in the clavicle , face, arms and legs; ~34% unintentional weight loss x 10-12 months; PO meeting less than 50% estimated nutrition needs x 6-12 months. Status Active Problem Recommendation Dietitian Continue liberalized regular diet and encourage Recommendations/ increased PO as tolerated. Changes Will add 240mL chocolate ensure plus HP 3 times per day with meals; encouraged to sip on them between meals. Will add magic cup dessert BID with lunch and dinner Q day. Trend weights, adjust ONS as needed, consider nocturnal TF support as indicated especially if PO is not adequate to replete increased energy needs. Weight / BMI Weight Weight: 86 lb 3.212 oz Body Mass Index (BMI) 16.2 ABG / Lab / Microbiology Data 01/18/25 04:36 01/18/25 04:36 Laboratory: Laboratory Results - last 24 hr 01/18/25 04:36: WBC 12.3 H, RBC 3.70 L, Hgb 13.0, Hct 39.3, MCV 106.2 H, MCH 35.1 H, MCHC 33.1, RDW Std Deviation 53.1 H, RDW Coeff of [place] 13.4, Plt Count 309, MPV 9.9, Immature Gran % (Auto) 0.200, Neut % (Auto) 87.3 H, Lymph % (Auto) 9.1 L, [place] % (Auto) 3.2, Eos % (Auto) 0.0, Baso % (Auto) 0.2, Absolute Neuts (auto) 10.7 H, Absolute Lymphs (auto) 1.12, Nucleated RBC % 0, Sodium 139, Potassium 4.3, Chloride 102, Carbon Dioxide 28.2, Anion Gap 9, BUN 12, C reatinine 0.39 L, Estim Creat Clear Calc 106.52, Est GFR (MDRD) Non-Af 121, B UN/Creatinine Ratio 29.6 H, Glucose 100 H, Calcium 8.9 Microbiology: Microbiology 01/16/25 14:57 Mucosa - Nose Respiratory Panel (PCR) - Final 01/16/25 09:03 Mucosa - Nose SARS-CoV-2, Influenza & RSV (PCR) - Final D/C Instructions Discharge Activity: Return to Normal Activity Weight Bearing Status: Weight bearing as tolerated Call your doctor if you observe: Fever of 101 or Higher, Shortness of breath, Dizziness, Swelling in the ankles and Chest pain DC O2, CPAP, BIPAP Needs Home O2 Discharge instructions: Yes Type of respiratory needs?: Oxygen Oxygen frequency: Continuous Continuous oxygen liters per minute: 2 DC home with Oxygen: Yes Home O2 MD Review: I have reviewed the oxygen testing, and the patient qualifies for home oxygen equipment and portability. The patient is mobile in the home and the community. Meaningful Use Info Meaningful Use Meaningful Use Diagnoses (Choose all that apply): None applicable Discharge Plan Admission Admit Date/Time: 01/16/25 11:43 Primary Reason for Your Visit: COPD exacerbation Attending Provider: Misty Latif Primary Care Provider: Kaiser Pinto Instructions Patient Instructions: Discharge Instructions: COPD, COPD Controlled Breathing Dc Discharge Orders/Prescriptions Prescriptions: New prednisone 20 mg tablet 40 mg PO DAILY Qty: 10 0RF levofloxacin 500 mg tablet 500 mg PO DAILY Qty: 3 0RF Continued albuterol sulfate 90 mcg/actuation Hfa Aerosol Inhaler 1 puff INHALATION Q6H PRN (Reason: sob) Trelegy Ellipta 100-62.5-25 mcg blister with device 1 ea inhalation DAILY Referrals / Follow Up: Kaiser Pinto MD [Primary Care Provider, [facility]] - Within 1 Week Disposition Disposition (needs filled in before D/C Order can be placed): Home, Self Care Charges/Coding Visit Charges Inpatient E&M: 08544 Disch Hosp >30min
--- NOTE | 2025-01-18 12:46 | DCINST_ITS ---
Discharge Instructions DC O2, CPAP, BIPAP needs Home O2 Discharge instructions: Yes Type of respiratory needs?: Oxygen Oxygen frequency: Continuous Continuous oxygen liters per minute: 2 Dressing / Incision Discharge Activity: Return to Normal Activity Dressing / Incision Call your doctor if you observe: Fever of 101 or Higher, Shortness of breath, Dizziness, Swelling in the ankles and Chest pain Follow Up Care Test Results: Test results from this visit will be discussed in further detail at your follow- up appointment, if applicable. Discharge Plan Admission Admit Date/Time: 01/16/25 11:43 Primary Reason for Your Visit: COPD exacerbation Attending Provider: Misty Latif Primary Care Provider: Kaiser Pinto Instructions Patient Instructions: Discharge Instructions: COPD, COPD Controlled Breathing Dc Discharge Orders/Prescriptions Prescriptions: New prednisone 20 mg tablet 40 mg PO DAILY Qty: 10 0RF levofloxacin 500 mg tablet 500 mg PO DAILY Qty: 3 0RF Continued albuterol sulfate 90 mcg/actuation Hfa Aerosol Inhaler 1 puff INHALATION Q6H PRN (Reason: sob) Trelegy Ellipta 100-62.5-25 mcg blister with device 1 ea inhalation DAILY Referrals / Follow Up: Kaiser Pinto MD [Primary Care Provider, Family Practice] - Within 1 Week Disposition Disposition (needs filled in before D/C Order can be placed): Home, Self Care
--- NOTE | 2025-01-18 14:30 | CASEMGMT ---
Patient has order for discharge. Patient is requring increase in home oxygen at discharge. Script received and sent to [facility] [place] via [facility]. BRITTANI CM in to discuss needs at discharge. Patient states she has portable tank for at discharge. Patient denies further needs or help at discharge. Patient had no further questions or concerns. RN FAUSTO updated discharge plan.
--- NOTE | 2025-01-18 15:06 | PHA.DC.MC.R ---
Pharmacy [facility] Counseling Pharmacy Service has performed discharge medication reconciliation and counseling for this patient. 1. LEVOFLOXACIN 500MG PO DAILY X 3 DAYS 2. PREDNISONE 40MG PO DAILY X 5 DAYS The patient's discharge medication list was reviewed for discrepancies and discrepancies were resolved. The patient was counseled on the following discharge medications and changes in medications for homegoing were reviewed. The Reason for Use, instructions for use, and potential side effects were reviewed for all new medications. The patient's questions regarding all of their medications were answered. The patient was able to verbally demonstrate an understanding of their discharge medications. Medications at Discharge Home Medications albuterol sulfate 90 mcg/actuation aerosol inhaler 1 puff inhalation Q6H PRN sob 02/19/21 fluticasone fur. 100 mcg-umeclid 62.5 mcg-vilant 25 mcg inhalat.powder (Trelegy Ellipta) 1 ea inhalation DAILY 01/16/25 levofloxacin 500 mg tablet 500 mg PO DAILY #3 tabs 01/18/25 prednisone 20 mg tablet 40 mg (2 x 20 mg) PO DAILY #10 tabs 01/18/25
== END 2025-01-18 15:27 | disposition home or self-care (01) | DRG 190 ==
LOC: ED 09:21 → PCU 12:06
PROVIDERS: Admitting Provider Student in an Organized Health Care Education/Training Program; Emergency Provider Surgery; PCP Family Medicine; Visit Provider Student in an Organized Health Care Education/Training Program
DX: J44.1 Chronic obstructive pulmonary disease with (acute) exacerbation (principal); E43 Unspecified severe protein-calorie malnutrition; J96.11 Chronic respiratory failure with hypoxia; Z68.1 Body mass index [BMI] 19.9 or less, adult; Z66 Do not resuscitate; J43.9 Emphysema, unspecified; F17.210 Nicotine dependence, cigarettes, uncomplicated; Z79.51 Long term (current) use of inhaled steroids; R91.1 Solitary pulmonary nodule
CPT/HCPCS: 36415; 71046; 71275; 80048; 83880; 84484; 85025; 85379; 87631; 87633; 93005; 94640; 97802; 99252; 99285; Q9967; A4216; G0463